=== PATIENT | female | born 1975 | race Caucasian/White ===

== ENCOUNTER 2023-03-26 11:40 | Emergency (ER) | payer MEDICAID ==
[~2023-03-26] VITALS: Ht 160 cm; Wt 100.0 kg
[~2023-03-26 11:40] MED LIST: ENAL2.5T40 PO; ESTRODIAL; IBUP-1984 PO; PROP10TA10 PO; TRAZ-91 PO
[2023-03-26 12:06] VITALS: BP 191/101
[2023-03-26] MEDS ORDERED: amoxicillin 250mg capsule PO ONE (13:20)
[2023-03-26] MEDS ORDERED: DOXYCYCLINE 100MG CAPSULE PO STA (13:20)
[2023-03-26] MEDS ORDERED: AMOX500C2 PO (13:35)
[2023-03-26] MEDS ORDERED: DOXY-411 PO (13:35)
== END 2023-03-26 14:24 | disposition home or self-care (01) ==
LOC: ER 11:40
DX: L03.116 Cellulitis of left lower limb (principal); I10 Essential (primary) hypertension; Z88.1 Allergy status to other antibiotic agents; Z88.5 Allergy status to narcotic agent; Z90.710 Acquired absence of both cervix and uterus; Z56.0 Unemployment, unspecified
CPT/HCPCS: 99283